=== PATIENT | male | born 1975 | race Caucasian/White ===

== ENCOUNTER 2018-11-06 17:54 | Emergency (ER) | payer BC ==
--- NOTE | 2018-11-06 18:12 | ED Physician Chart ---
ED Chief Complaint/HPI - Patient Information Date Seen:: 10/30/18 Time Seen:: 18:07 Chief Complaint:: right upper arm injury History of Present Illness:: this is a 43 yo male who states that he fell last night and injured is right upper arm. he is now concern about it possibly being broken. Historian:: Patient Review:: Nurse's Note Reviewed ED Review of Systems - Review of Systems General/Constitutional: No fever, No chills, No weight loss, No weakness, No diaphoresis, No edema, No loss of appetite Skin: No skin lesions, No rash, No bruising Head: No headache, No light-headedness Eyes: No loss of vision, No pain, No diplopia ENT: No earache, No nasal drainage, No sore throat, No tinnitus Neck: No neck pain, No swelling, No thyromegaly, No stiffness, No mass noted Cardio Vascular: No chest pain, No palpitations, No PND, No orthopnea, No edema Pulmonary: No SOB, No cough, No sputum, No wheezing GI: No nausea, No vomiting, No diarrhea, No pain, No melena, No hematochezia, No constipation, No hematemesis G/U: No dysuria, No frequency, No hematuria Musculoskeletal: Bone or joint pain (right upper arm and left knee pain), No bone or joint pain, No back pain, No muscle pain Endocrine: No polyuria, No polydipsia Psychiatric: No prior psych history, No depression, No anxiety, No suicidal ideation Hematopoietic: No bruising, No lymphadenopathy Allergic/Immuno: No urticaria, No angioedema Neurological: No syncope, No focal symptoms, No weakness, No paresthesia, No headache, No seizure, No dizziness, No confusion, No vertigo ED Past Medical History - Past Medical History Obtainable: Yes Past Medical History: Other (hiv possitive) Family History: None Social History: Non Smoker, No Alcohol, No Drug Use, Employed Surgical History: None Psychiatricy History: None Medication: Reviewed ED Physical Exam - Physical Examination General/Constitutional: Awake, Well-developed, well-nourished, Alert, No distress, GCS 15, Non-toxic appearing, Ambulatory Head: Atraumatic Eyes: Lids, conjuctiva normal, PERRL, EOMI Skin: Nl inspection, No rash, No skin lesions, No ecchymosis, Well hydrated, No lymphadenopathy ENMT: External ears, nose nl, Nasal exam nl, Lips, teeth, gums nl Neck: Nontender, Full ROM w/o pain, No JVD, No nuchal rigidity, No bruit, No mass, No stridor Respiratory: Nl effort/Exclusion, Clear to Auscultation, No Wheeze/Rhonchi/Rales Cardio Vascular: RRR, No murmur, gallop, rubs, NL S1 S2 GI: No tenderness/rebounding/guarding, No organomegaly, No hernia, Normal BS's, Nondistended, No mass/bruits, No McBurney tenderness : No CVA tenderness Extremities: No tenderness or effusion, Full ROM, normal strength in all extremities, No edema, Normal digits & nails Other Extremities comments:: right upper arm is deformed and too painful to move with good pulses and sensory. there is also pain and swelling of th left knee. Neuro/Psych: Alert/oriented, DTR's symmetric, Normal sensory exam, Normal motor strength, Judgement/insight normal, Mood normal, Normal gait, No focal deficits Misc: Normal back, No paraspinal tenderness ED Septic Shock - . Is Septic Shock (SBP<90, OR Lactate>4 mmol\L) present?: No
[2018-11-06] MEDS ORDERED: HYDROmorphone 1 mg/mL 1mL Syr IM STA (20:17)
[2018-11-06 20:35] LABS: % BASOPHILS 0.7 % (0.0-2.0); % EOSINOPHILS 0.1 % (0.0-5.0); % LYMPHOCYTES 14.3 % (20.0-50.0); % MONOCYTES 6.4 % (2.0-10.0); % NEUTROPHILS 78.5 % (40.0-80.0); BASOPHILE ABSOLUTE 0.1 Th/cumm (0-0.2); HEMATOCRIT 40.7 % (41.0-60); HEMOGLOBIN 13.6 gm/dL (12-16); LYMPHOCYTE ABSOLUTE 1.1 Th/cmm (1.5-3.0); MEAN CELL VOLUME 95.6 fl (80-99); MEAN CORPUSCULAR HGB CONC 33.5 pg (28.0-36.0); MEAN PLATELET VOLUME 7.3 fl; MONOCYTE ABSOLUTE 0.5 Th/cmm (0.3-1.0); NEUTROPHILE ABSOLUTE 6.2 Th/cmm (1.8-8.0); PLATELET COUNT 141 Th/cmm (150-400); RED BLOOD COUNT 4.25 Mil/cmm (4.30-5.70); RED CELL DISTRIBUTION WIDTH 14.4 % (11.5-20.0); WHITE BLOOD COUNT 7.9 Th/cmm (4.8-10.8)
[2018-11-06] MEDS ORDERED: HYDROmorphone 2 mg/mL 1mL Vial ONE (20:38)
[2018-11-06 20:54] LABS: ALBUMIN 3.6 gm/dL (4.2-5.5); ALKALINE PHOSPHATASE 58 U/L (34-104); ANION GAP 22.4 (7.0-16.0); BILIRUBIN,TOTAL 0.6 mg/dL (0.3-1.0); BUN - UREA NITROGEN 8 mg/dL (7-25); CALCIUM SERUM 8.8 mg/dL (8.6-10.3); CARBON DIOXIDE 19.3 mEq/L (21.0-31.0); CHLORIDE 102 mEq/L (98-107); CREATININE - SERUM 0.8 mg/dL (0.7-1.3); GFR AFRICAN-AMERICAN > 60.0 ml/min (>90); GFR NON AFRICAN-AMERICAN > 60.0 ml/min; GLUCOSE 71 mg/dL (70-105); POTASSIUM SERUM 3.7 mEq/L (3.5-5.1); SGOT 59 U/L (13-39); SGPT/ALT 37 U/L (7-52); SODIUM SERUM 140 mEq/L (136-145); TOTAL PROTEIN,SERUM 7.2 gm/dL (6.0-8.3)
--- NOTE | 2018-11-07 09:50 | Diagnostic Imaging Report ---
Exam: CT examination of the left knee joint. HISTORY: Trauma Total DLP equals 217 CTDI equals 7.9 Findings: Multiple contiguous thin section of the left knee joint were obtained in axial plane with coronal sagittal reconstruction technique. The study demonstrates no evidence for acute fracture dislocation. The joint spaces intact. The patella is normal. There is evidence for suprapatellar and prepatellar effusion. Fluid collection in the medial left knee compartment is noted. If clinically indicated, ligamentous or meniscal injury suspected MRI examination of the helpful. IMPRESSION: Prepatellar and suprapatellar joint effusion Fluid collection medial left knee compartment. No evidence for acute fracture dislocation. If clinically indicated MRI examination might be helpful for further evaluation.
--- NOTE | 2018-11-07 09:53 | Diagnostic Imaging Report ---
Exam: CT examination right shoulder joint HISTORY: Trauma Total DLP equals 404 CTDI equals 16.1 Findings: Multiple contiguous thin section of the shoulder joint were obtained in axial plane with coronal and sagittal reconstruction technique. The study demonstrates comminuted minimally displaced impacted fracture of the right humeral head and neck. There is evidence for multiple fragmentation of the head of the right humerus around right humeral head. The visualized acromioclavicular joint is intact. The visualized the glenoid fossa is intact. The right scapula is normal. Soft tissue swelling is noted. IMPRESSION: Comminuted, displaced, minimally impacted fracture of the right humeral head with multiple fragmentation bony fragments around the head and neck of the right humerus. Soft tissue swelling.
== END 2018-11-06 22:37 | disposition home or self-care (01) ==
LOC: ER 17:54
DX: S49.91XA Unspecified injury of right shoulder and upper arm, initial encounter (principal); M25.562 Pain in left knee; M25.462 Effusion, left knee; W18.39XA Other fall on same level, initial encounter; Y93.89 Activity, other specified; Y92.89 Other specified places as the place of occurrence of the external cause; Y99.8 Other external cause status
CPT/HCPCS: 99284; 96372 ×2; 73200; 73700; 84484; 36415; 85025; 80053; 87040; 90715; Q0162; J1885; J1170